=== PATIENT | female | born 1965 | race Caucasian/White ===

== ENCOUNTER 2017-02-27 09:02 | Day surgery (SDC) | payer MEDICARE ==
[2017-02-27 09:56] LABS: HEMATOCRIT 43.9 % (36.0-48.0); HEMOGLOBIN 14.6 g/dL (12-16); MCH 31.4 pg (26.0-34.0); MCHC 33.3 g/dL (31.0-37.0); MCV 94.4 fL (80.0-100.0); MEAN PLATELET VOLUME 9.6 fL (7.4-10.4); RBC 4.65 10x6/uL (4.00-5.40); RDW 13.5 % (11.5-14.5); WBC 10.7 10x3/uL (4.8-10.8)
[2017-02-27] MEDS ORDERED: METOPROLOL TART50 MG PO (10:02)
[2017-02-27] MEDS ORDERED: GABAPENTIN100 MG PO (10:02)
[2017-02-27] MEDS ORDERED: ESTRACE1 MG PO (10:03)
[2017-02-27 10:10] VITALS: BP 125/82; BMI 20.6
--- NOTE | 2017-02-27 12:37 | NUR ---
AMBULATED TO BR, VOIDED. RET'D TO BED, FULL LIQ DIET SERVED AND TOLERATED.
--- NOTE | 2017-02-27 13:10 | NUR ---
1250- IV D/C'D, PT TOLERATED. CATHETER INTACT. 1305- DISCHARGE INSTRUCTIONS COMPLETED, PAPERWORK SIGNED. PT VERBALIZED UNDERSTANDING. 1310- PT DISCHARGED VIA WHEELCHAIR WITH FRIEND.
--- NOTE | 2017-02-28 07:47 | OP ---
PATIENT NAME: STARLA ADAMS MEDICAL RECORD: [id number] :61 [facility] AD[facility] DATE: SURGEON: CHELSEA REESE DO DATE OF OPERATION: 02/27/2017 PROCEDURE: EGD with biopsies. INDICATIONS FOR PROCEDURE: Right lower quadrant and right upper quadrant abdominal pain as well as nausea. SCOPE: Olympus video gastroscope. MEDICATIONS: Propofol 250 mg IV per anesthesia. ESTIMATED BLOOD LOSS: Minimal. COMPLICATIONS: None. FINDINGS: Informed consent was given. The patient was made comfortable with the above medication. After reaching an adequate level of sedation by slow IV push, the patient was placed on her left side. The endoscope was then advanced under direct visualization through the mouth to the second and third portion of the duodenum. The esophagus appeared normal in its entirety. At the GE junction, there was some very mild evidence of [place] class A reflux-induced esophagitis. A hiatal hernia was also evident approximately from the esophagus. The endoscope was advanced beyond the GE junction into the stomach and retroflexed to view the cardia, where the hiatal hernia was visualized again. The fundus and body of the stomach appeared normal. As you approached the antrum and prepyloric region, there was some erythema and granularity consistent with possible gastritis. Random biopsies were taken to submit for histology and to rule out H. pylori. The endoscope was then advanced beyond the pylorus into the duodenum where the bulb, first portion, second portion, and third portion of the duodenum appeared normal. The endoscope was then withdrawn from the patient. The patient tolerated the procedure well and there were no complications. IMPRESSION: 1. [place] classification A reflux-induced esophagitis. 2. Small sliding hiatal hernia. 3. Erythema and granularity of the stomach consistent with possible gastritis. Biopsies are pending. PLAN AND RECOMMENDATIONS: 1. Discharge home when recovery parameters are met. 2. Follow up biopsy specimen results and treat if indicated for H. pylori. 3. Continue current diet. 4. Continue current medications including omeprazole 40 mg daily. 5. Proceed with colonoscopy as scheduled. 6. If a cause for the abdominal pain is not found after the colonoscopy, further recommendations may be made. TRANSINT:[id number] Voice Confirmation ID: [id number] DOCUMENT ID: [id number] OPERATIVE REPORT [id number] STARLA ADAMS CHELSEA REESE DO at 0747 CC: [id number] DICTATION DATE: 02/27/17 1211 POWDERMAN: 02/27/17 1228 [facility] [place] 02/27/17 [id number] [place] [address]
== END 2017-02-27 13:10 | disposition home or self-care (01) ==
LOC: D.OPS 09:02
PROVIDERS: Anesthesiology
DX: R10.31 Right lower quadrant pain (principal); R10.11 Right upper quadrant pain; R11.0 Nausea; K21.0 Gastro-esophageal reflux disease with esophagitis; K44.9 Diaphragmatic hernia without obstruction or gangrene; F17.200 Nicotine dependence, unspecified, uncomplicated; I10 Essential (primary) hypertension; Z01.812 Encounter for preprocedural laboratory examination

== ENCOUNTER 2017-03-13 09:01 | Day surgery (SDC) | payer MEDICARE ==
[~2017-03-13 09:01] MED LIST: ESTRACE1 MG PO; GABAPENTIN100 MG PO; METOPROLOL TART50 MG PO
[2017-03-13 10:34] VITALS: BP 125/88; BMI 20.6
--- NOTE | 2017-03-13 11:55 | NUR ---
PT REC'D TO ROOM VIA STRETCHER. DROWSY, RESPONDS TO VERBAL STIMULI.
--- NOTE | 2017-03-13 12:10 | NUR ---
PT AMBULATED TO BR, VOIDED, PASSED FLATUS. FULL LIQ DIET PROVIDED. PT ALERT AND ORIENTED.
--- NOTE | 2017-03-13 12:28 | NUR ---
DR. REESE IN TO TALK WITH PT.
--- NOTE | 2017-03-13 12:38 | NUR ---
PT AWAKE, ALERT, ORIENTED. TOLERATED LIQUID DIET. IV D/C'D CATH INTACT.
--- NOTE | 2017-03-13 12:49 | NUR ---
D/C INSTRUCTIONS EXPLAINED TO PT. VOICED UNDERSTANDING. PIPIDA SCAN SCHEDULED 10-24 @9AM. INSTRUCTIONS GIVEN. COPIES OF ALL GIVEN TO PT.
--- NOTE | 2017-03-15 14:40 | OP ---
PATIENT NAME: STARLA ADAMS MEDICAL RECORD: [id number] :61 LOCATION:[facility] ADMISSION DATE: SURGEON: CHELSEA REESE DO DATE OF OPERATION: 03/13/2017 PROCEDURE: Colonoscopy with polypectomy. INDICATIONS FOR PROCEDURE: Right-sided abdominal pain and diverticulosis of the colon. SCOPE: [employer] video pediatric colonoscope. MEDICATIONS: Propofol 950 mg IV per anesthesia. WITHDRAWAL TIME: Greater than 30 minutes. ESTIMATED BLOOD LOSS: Minimal. COMPLICATIONS: None. FINDINGS: Informed consent was given. The patient was made comfortable with the above medication. After reaching an adequate level of sedation by slow IV push, the patient was placed on her left side. A digital rectal examination was performed and was normal. The endoscope was then advanced under direct visualization through the rectum to the terminal ileum. The scope was slowly withdrawn and mucosa was carefully examined. Prep quality was fair, but there were some solid pieces of stool, which made visualization of the entire mucosa of the colon impossible. There were multiple polyps visualized on today's examination. The first was located in the ascending colon. It measured approximately 6-7 mm in diameter, it was flat. Endoscopic mucosal resection was performed with a lifting technique of normal saline injected submucosally into the tissue. Once an adequate lift was achieved, a hot snare was used to remove the polyp in 1 piece and completely retrieve it. There was a small defect left from this polypectomy, so a single endoclip was used to close this defect successfully. In the transverse colon, there was a single flat polyp, which measured approximately 7 mm in diameter and was located across the fold. A hot snare was used to remove this polyp in 1 piece and completely retrieve it. In the descending colon, there were 3 separate polyps, which were small, benign appearing, and sessile. They ranged in size from 4-6 mm in diameter. They were all removed using a hot forcep in 1 piece and completely retrieved. In the sigmoid colon, there was a single polyp, which was small and benign-appearing. It measured approximately 5 mm in diameter and was removed using hot forceps in 1 piece and completely retrieved. There was evidence of mild diverticulosis of the left side of the colon. It appeared that there was some prior intervention in the rectosigmoid junction, which would be consistent with the patient's history of a possible small bowel preparation during a hysterectomy procedure. Retroflexion was performed in the rectum with a normal appearing rectal wall. The scope was then withdrawn from the patient. The patient tolerated the procedure well and there were no complications. IMPRESSION: 1. Multiple polyps as described above removed using various methods. 2. Mild diverticulosis of left side of the colon. 3. There were adhesions and some difficulty with passage of the endoscope on this examination, which could lend support to adhesive disease causing the OPERATIVE REPORT [id number] ANGIESTARLA patient's pain. PLAN AND RECOMMENDATIONS: 1. Discharge home when recovery parameters are met. 2. Follow up biopsy specimen results. 3. High fiber diet. 4. Continue current medications. 5. PIPIDA scan to rule out lot physiologic dysfunction of the gallbladder. She has previously had a normal ultrasound. 6. Recall colonoscopy in 1-2 years for surveillance based on multiple polyps visualized on today's examination and less inadequate prep. TRANSINT:[id number] Voice Confirmation ID: [id number] DOCUMENT ID: [id number] CHELSEA REESE DO at 1440 CC: [id number] DICTATION DATE: 03/13/17 1144 EMERGENCY SPILL RESPONSE TECHNICIAN: 03/13/17 1232 [facility] 03/13/17 [facility] [address] [place] [address]
== END 2017-03-13 12:57 | disposition home or self-care (01) ==
LOC: D.OPS 09:01
DX: R10.11 Right upper quadrant pain (principal); R11.0 Nausea; K57.30 Diverticulosis of large intestine without perforation or abscess without bleeding; K63.5 Polyp of colon; F17.200 Nicotine dependence, unspecified, uncomplicated; I10 Essential (primary) hypertension; K21.9 Gastro-esophageal reflux disease without esophagitis; Z01.812 Encounter for preprocedural laboratory examination

== ENCOUNTER → 2017-03-20 09:25 | Outpatient (CLI) | payer MEDICARE ==
[2017-03-13 10:34] VITALS: BMI 20.6
== END | disposition home or self-care (01) ==
LOC: D.NM 09:25
DX: R10.11 Right upper quadrant pain (principal)

== ENCOUNTER → 2017-04-24 08:43 | Outpatient (CLI) | payer MEDICARE | END | disposition home or self-care (01) | LOC: D.NM 08:43 | DX: R14.0 Abdominal distension (gaseous) (principal); R68.81 Early satiety; R10.11 Right upper quadrant pain ==